=== PATIENT | male | born 1985 | race Caucasian/White ===

== ENCOUNTER 2018-09-19 11:43 | Emergency (ER) | payer OTHER ==
[~2018-09-19] VITALS: Ht 175.3 cm; Wt 128.9 kg
[2018-09-19 12:19] VITALS: Ht 175.3 cm; Wt 128.9 kg
[2018-09-19 15:15] VITALS: BP 147/101
== END 2018-09-19 15:15 | disposition home or self-care (01) ==
LOC: ED 11:43
DX: S62.633A Displaced fracture of distal phalanx of left middle finger, initial encounter for closed fracture (principal); Z88.2 Allergy status to sulfonamides; Z88.1 Allergy status to other antibiotic agents; X58.XXXA Exposure to other specified factors, initial encounter; Y93.89 Activity, other specified; Y92.89 Other specified places as the place of occurrence of the external cause; Y99.8 Other external cause status

== ENCOUNTER 2020-09-04 17:20 | Emergency (ER) | payer SELFPAY ==
[~2020-09-04] VITALS: Ht 175.3 cm; Wt 111.6 kg
[2020-09-04 17:40] VITALS: Ht 175.3 cm; Wt 111.6 kg
[2020-09-04 19:23] LABS: BASOPHIL % 0 % (0-2); CALCIUM 9.6 mg/dL (8.5-10.1); CARBON DIOXIDE 30.6 mmol/L (21-32); CHLORIDE SERUM 96 mmol/L (98-107); CREATININE SERUM 0.9 mg/dL (0.7-1.3); GFR1 > 60 mL/min; GLUCOSE SERUM 287 mg/dL (74-106); PLATELET COUNT 491 x10^3mcL (130-400); POTASSIUM SERUM 4.2 mmol/L (3.5-5.1); SODIUM SERUM 135 mmol/L (136-145)
[2020-09-04 19:41] LABS: ALBUMIN 3.7 g/dL (3.4-5.0); ALKALINE PHOSPHATASE 156 U/L (46-116); ALT/SGPT 82 U/L (16-63); AST/SGOT 34 U/L (15-37); BILIRUBIN TOTAL 0.88 mg/dL (0.20-1.00); C REACTIVE PROTEIN 3.3 mg/dL (<=0.9)
[2020-09-04 19:44] LABS: TOTAL PROTEIN, SERUM 8.4 g/dL (6.4-8.2)
[2020-09-05 00:09] VITALS: BP 133/74
== END 2020-09-05 00:09 | disposition home or self-care (01) ==
LOC: ED 17:20
PROVIDERS: Emergency Medicine
DX: K04.7 Periapical abscess without sinus (principal); K12.2 Cellulitis and abscess of mouth; J45.909 Unspecified asthma, uncomplicated; E11.9 Type 2 diabetes mellitus without complications; Z98.890 Other specified postprocedural states; Z88.2 Allergy status to sulfonamides; Z88.1 Allergy status to other antibiotic agents
CPT/HCPCS: J2543; J7050; J7060

== ENCOUNTER 2020-12-02 20:14 | Emergency (ER) | payer SELFPAY ==
[~2020-12-02] VITALS: Ht 175.3 cm; Wt 117.9 kg
[2020-12-02 20:32] VITALS: Ht 175.3 cm; Wt 117.9 kg
[2020-12-02] MEDS ORDERED: CLINDAMYCIN300 M1 PO (22:19)
[2020-12-02] MEDS ORDERED: KEF500 PO (22:19)
[2020-12-02] MEDS ORDERED: IBU800 M2 PO (22:19)
[2020-12-02] MEDS ORDERED: ACETAMINOPHEN-H1 TA1 PO (22:19)
[2020-12-02 22:33] VITALS: BP 162/93
== END 2020-12-02 22:36 | disposition home or self-care (01) ==
LOC: ED 20:14
DX: L03.221 Cellulitis of neck (principal); J45.909 Unspecified asthma, uncomplicated; E11.9 Type 2 diabetes mellitus without complications; Z88.2 Allergy status to sulfonamides
CPT/HCPCS: J0696; J1885

== ENCOUNTER 2020-12-07 18:04 | Emergency (ER) | payer MEDICAID ==
[~2020-12-07] VITALS: Ht 175.3 cm; Wt 117.5 kg
[~2020-12-07 18:04] MED LIST: ACETAMINOPHEN-H1 TA1 PO; CLINDAMYCIN300 M1 PO; IBU800 M2 PO; KEF500 PO
[2020-12-07 18:16] VITALS: Ht 175.3 cm; Wt 117.5 kg
[2020-12-07] MEDS ORDERED: CLEOCIN HCL300 MG PO (21:28)
[2020-12-07] MEDS ORDERED: KEF500 PO (21:28)
[2020-12-07] MEDS ORDERED: IBU800 M2 PO (21:29)
[2020-12-07 21:50] VITALS: BP 150/89
== END 2020-12-07 21:53 | disposition home or self-care (01) ==
LOC: ED 18:04
DX: L03.221 Cellulitis of neck (principal); J45.909 Unspecified asthma, uncomplicated; E11.9 Type 2 diabetes mellitus without complications
CPT/HCPCS: J1885; Q9967